=== PATIENT | female | born 1950 | race Caucasian/White ===

== ENCOUNTER 2016-08-19 21:41 | Emergency (ER) | payer BC ==
--- NOTE | ~2016-08-19 | EKG ---
PATIENT: JOSE MARTIN SERNA UNIT #: [id number] Ventricular Rate: 78 BPM Atrial Rate: 78 BPM P-R Interval: 178 ms QRS Duration: 90 ms Q-T Interval: 420 ms QTC Calculation(Bezet): 478 ms P [place]: 56 degrees Calculated R [place]: -16 degrees Calculated T [place]: 34 degrees Diagnosis Line: Normal sinus rhythm Diagnosis Line: Normal ECG Diagnosis Line: When compared with ECG of 22-DEC-2011 21:32, Diagnosis Line: CO interval has decreased Diagnosis Line: Confirmed by ISSAC BECKMAN MD ([id number]) on 08/20/2016 Diagnosis Line: 10:47:03 PM INTERPRETING MD: KARUNA HOGAN
--- NOTE | ~2016-08-19 | CR72 ---
[facility] A Service of [facility] RADIOLOGY TEXT RESULTS PATIENT: JOSE MARTIN SERNA LOCATION: [facility] : 48 UNIT #: [id number] AGE: [address]: Nate Quevedo MD SEX: F ORDER DR: [id number] [facility] [place] [address] [place], [place] [address] [id number] E MR#: [id number] Acc #: [id number] NAME: JOSE MARTIN SERNA : 1950 SEX: F STUDY DATE/TIME: 08/19/2016 21:42 UNIT: [facility] ROOM: STUDY DESCRIPTION: CR Chest Single View Portable Attending Physician: Nate Quevedo M.D. Ordering Physician: Nate Quevedo M.D. Primary Care Physician: Nate Madrid M.D. MEDICAL IMAGING REPORT This report is preliminary unless electronic signature is present EXAM Portable AP view of the chest COMPARISON September 09 and January 04, 2006. INDICATION 66-year-old female with cough and chest congestion today. History of pneumonia. Prior left mastectomy for breast cancer. FINDINGS Surgical clips again noted in the left axilla. There are minimally increased peripheral opacities in the left costophrenic sulcus which appears somewhat nodular but may reflect minimal atelectasis. Pulmonary interstitium appears stable in the right lung base as compared to 2006. No current evidence of pneumonia, pneumothorax or pleural effusion. Cardiomediastinal silhouette is within normal limits for portable technique. IMPRESSION 1. Minimal opacities in the left costophrenic sulcus appear new from comparison. These appear somewhat nodular but could also possibly reflect minimal peripheral atelectasis. Consider radiographic follow up to ensure resolution. No evidence of consolidative pneumonia, pneumothorax or pleural effusion. Dictated by... Jesse Rodriguez M.D. THIS IS AN ELECTRONICALLY VERIFIED REPORT Jesse Rodriguez M.D. at 08/21/2016 3:31 PM DEBBIE/pujar [facility] A Service of [facility] RADIOLOGY TEXT RESULTS PATIENT: JOSE MARTIN SERNA LOCATION: [facility] : 48 UNIT #: [id number] AGE: [address]: Nate Quevedo MD SEX: F ORDER DR: TD: 08/20/2016 00:38 JOB #: [id number] MEDICAL IMAGING REPORT Page 1 of 1 COPY
[~2016-08-19 21:41] MED LIST: ASPIRIN; ASPIRIN81 M1 PO; ATENOLOL; ATENOLOL25 MG PO; ATENOLOL50 MG PO; EVISTA60 MG; INDERAL LA; K-DUR20 ME1 PO; LEVSIN; LORTAB 5/500 TA1 TA1 PO; OMEPRAZOLE40 MG PO; PAROXETINE HCL10 MG PO; PAXIL; PROTONIX; SIMVASTATIN40 MG PO; SYNTHROID25 MCG PO; TENORMIN25 MG PO; TENORMIN50 MG PO; VITAMIN D-32000 UNIT PO; VYTORIN; VYTORIN 10/40 T1 TAB PO
[2016-08-19 22:23] LABS: BASOPHIL# 0.1 X10e3 (0-0.3); BASOPHIL% 0.4 % (0-2.5); EOSINOPHIL# 0.3 X10e3 (0-0.7); EOSINOPHIL% 1.5 % (0.0-7.0); HEMATOCRIT 43.8 % (35.0-45.0); HEMOGLOBIN 14.2 gm/dL (12.0-16.0); MEAN CELL VOLUME 88.2 FL (83-96); MEAN CORPUSCULAR HEMOGLOBIN 28.6 PG (28-34); MEAN CORPUSCULAR HGB CONC 32.4 g/dL (30-36); MEAN PLATELET VOLUME 8.5 FL (6.5-11.5); MONOCYTE# 0.5 X10e3 (0-1.0); MONOCYTE% 2.5 % (3.0-12.0); NEUTROPHIL# 18.1 X10e3 (1.5-7.1); NEUTROPHIL% 90.6 % (40-75); PLATELET COUNT 246 X10e3 (140-420); RED BLOOD COUNT 4.96 X10e (3.90-5.30); RED CELL DISTRIBUTION WIDTH 13.4 % (11.0-15.5)
[2016-08-19 22:28] LABS: DIFF IND YES
[2016-08-19 22:43] LABS: PLATELET ESTIMATE NORMAL (NORMAL); RBC NORMAL YES
[2016-08-19 23:12] LABS: ALBUMIN SERUM 4.4 g/dL (3.5-5.0); BILIRUBIN, DIRECT 0.2 mg/dL (0.0-0.2); BILIRUBIN,INDIRECT 0.9 mg/dL (0.0-0.9); BILIRUBIN,TOTAL 1.1 mg/dL (0.2-2.0); BUN/CREATININE RATIO 14.28; CALCIUM SERUM 9.4 mg/dL (8.4-10.2); CREATININE SERUM 0.7 mg/dL (0.6-1.4); GLOM FILT RATE Estimated 89.7 mL/min (>60); POTASSIUM 4.2 mmol/L (3.5-5.1)
== END 2016-08-20 00:40 | disposition home or self-care (01) ==
LOC: CED 21:41
PROVIDERS: Emergency Medicine
DX: J18.1 Lobar pneumonia, unspecified organism (principal)
CPT/HCPCS: 36415; 71010; 80048; 80076; 83605; 85025; 87040; 93005; 94640; 96361; 96365; 96367; 99284; J0456; J0696